=== PATIENT | female | born 1960 | race Caucasian/White ===

== ENCOUNTER 2023-05-04 11:01 | Outpatient (CLI) | payer OTHER, SELFPAY ==
--- NOTE | 2023-05-04 | ECG_ITS ---
Measurements Intervals Scurry Rate: 72 P: 46 PA: 181 QRS: 7 QRSD: 88 T: 9 QT: 373 QTc: 408 Interpretive Statements SINUS RHYTHM WITH OCCASIONAL SUPRAVENTRICULAR PREMATURE COMPLEXES NO PREVIOUS ECG AVAILABLE FOR COMPARISON Electronically Signed On 05-04-2023 19:57:17 CDT by Ashly Pradhan M.D.
[2023-05-04 11:49] LABS: Hematocrit 41.9 % (37.0-47.0); Hemoglobin 13.6 g/dL (12.0-15.0); Mean Corpuscular HGB Conc 32.5 g/dl (32-36); Mean Corpuscular Hemoglobin 31.6 pg (26-34); Mean Corpuscular Volume 97.4 fl (80-100); Mean Platelet Volume 9.6 fl (7.4-10.4); Platelet Count Result 349 k/mm3 (150-375); Red Cell Distribution Width 14.4 % (11.5-14.5); White Blood Count 5.8 K/mm3 (4.5-10.0)
[2023-05-04 12:01] LABS: Albumin Level 4.5 g/dL (3.5-5.1); Anion Gap 6 mmol/L (8-16); Blood Urea Nitrogen 25 mg/dL (7-17); Calcium 9.4 mg/dL (8.4-10.2); Carbon Dioxide 32 mmol/L (22-30); Chloride 99 mmol/L (98-107); Estimated Glomerular Filt Rate > 60; Glucose 98 mg/dL (65-110); Potassium 3.4 mmol/L (3.4-5.0); Sodium 137 mmol/L (137-145)
[2023-05-04 12:08] LABS: Prealbumin 21.3 mg/dL (17.6-36.0)
[2023-05-04 13:00] LABS: Iron 136 ug/dL (37-170)
[2023-05-09 12:51] LABS: Vitamin B1 24 nmol/L (8-30)
== END 2023-05-04 11:02 | disposition home or self-care (01) ==
LOC: ANHLAB 11:11
PROVIDERS: PCP Family Medicine; Visit Provider Surgery Plastic and Reconstructive Surgery
DX: R93.1 Abnormal findings on diagnostic imaging of heart and coronary circulation (principal); I10 Essential (primary) hypertension
CPT/HCPCS: 36415; 80048; 82040; 83540; 84134; 84425; 85027; 93005

== ENCOUNTER 2023-05-06 16:12 | Outpatient (CLI) | payer BC, SELFPAY ==
--- NOTE | ~2023-05-06 | MM_ITS ---
EXAMINATION: MM screening russel BI w rekha HISTORY: Screening mammogram TECHNIQUE: Craniocaudal and mediolateral oblique 3-D tomosynthesis images were obtained and synthetic 2-D images were generated. CAD analysis was submitted and interpreted. COMPARISON: 02/06/2011 bilateral screening mammogram BREAST PARENCHYMAL COMPOSITION: There are scattered areas of fibroglandular density. FINDINGS: There is no evidence of suspicious mass, calcification, or architectural distortion to sugg est malignancy in either breast. There has been no suspicious interval change. IMPRESSION: 1. No mammographic evidence of malignancy. 2. Recommend routine screening mammography in one year. BI-RADS Category 1: Negative Reviewed, dictated and finalized at location A.
== END 2023-05-06 16:13 | disposition home or self-care (01) ==
PROVIDERS: PCP Family Medicine; Visit Provider Obstetrics & Gynecology
DX: Z12.31 Encounter for screening mammogram for malignant neoplasm of breast (principal)
CPT/HCPCS: 77063; 77067

== ENCOUNTER 2023-05-28 00:33 | Day surgery (SDC) | payer OTHER, SELFPAY ==
[2023-05-24 14:20] VITALS: BMI 31.6
--- NOTE | 2023-05-24 14:26 | PC.NURSE ---
Addendum entered by Philomena Cristina RN 05/24/23 15:27: PT HAS ALREADY STOPPED TAKING ASPIRIN. Original Note: Report to the Outpatient Waiting Room, entrance under the green pavilion located off [facility], at time 0830 on date 05/28/23. Planned Procedure Time: 1030. Time changes happen often and if your time is changed the preop area will call you the afternoon before. - You and your visitor will be asked to self-screen and do not enter if you have any COVID symptoms. - A mask is optional within the hospital at this time. Patients may have clear liquids (water, carbonated beverages, clear teas, apple juice) until 3 hours prior to surgery with a maximum of 20 ounces. - No food from midnight until time of surgery Take the following medications with a SIP of water the morning of surgery: NONE DO NOT STOP ANY OF YOUR OTHER PRESCRIPTION MEDICATIONS PRIOR TO SURGERY ?EXCEPT THE FOLLOWING Medications to discontinue per physician: VITAMINS/SUPPLEMENTS Date to take last dose: 05/24/23 Please no make-up, nail barbadian, hairspray, perfume, deodorant, or body powder the day of surgery. No jewelry (including any body piercings) or valuables the day of surgery, leave them at home. Please take a shower or bath the night before, or the morning of, surgery with an antibacterial soap. Wear comfortable, loose fitting clothing. - Jewelry must be removed prior to entering the operating room. Rings and piercings that are not removed may be cut off. - The hospital will not accept responsibility for valuables. - Please leave all valuables, including medications, at home the day of surgery. If you are going home after surgery, a licensed ice cream truck driver must drive you home. - NO public transportation without another adult if you receive anesthesia. - We recommend that an adult stay with you for 24 hours following discharge. - We also recommend that you do not drive, make important decision, drink alcoholic beverages, or take any drugs that were not prescribed by your health care provider for at least 24 hours after your discharge time. Follow any additional instructions given to you from your surgeon. If you or anyone in your household have experienced Covid symptoms in the past week, please notify your surgeon or the nurse liaison at the phone number below for possible testing. Telephone instructions given to PT - VARUN FUCHS and asked if any additional questions and then verbalized understanding. Patient advised to call surgeon office or pre surgery nurse liaison [phone] if any additional questions.
[2023-05-28] VITALS (9 sets, daily range): BP systolic 124–159; BP diastolic 66–92; PULSE 80–100; RESP 10–16; TEMP 36.3–36.5; O2SAT 99–100
[2023-05-28 09:53] LABS: Urine Cotinine NEGATIVE
[2023-05-28] MEDS: LACTATED RINGERS 1,000 ML 30 ML IV CONT ×2 (09:53→13:08)
--- NOTE | 2023-05-28 09:56 | P.OP_ITS ---
Procedure Note - Detailed Date of Procedure 05/28/23 Pre-op Diagnosis macromastia Post-op Diagnosis Same Procedure Performed Bilateral reduction mammaplasty with Galaflex Surgeon Milton Perrin MD Anesthesia General Findings Bilateral free nipple graft Tissue removed: Right: 1259 grams Left: 1080 grams Galaflex Ref# [id number] Description of Procedure She is here today for bilateral breast reduction. Previously and again today the risks, benefits, alternatives were discussed in extensive detail. I wanted her to be very realistic about the risks involved as well as expectations. After discussion she would like to proceed with free NAC graft. We discussed aftercare and what to monitor for. She understands we can never guarantee final breast size and there will always be asymmetry. I was very upfront and honest about the risks of sensation change and even nipple loss (). Made sure answered all of her questions to her satisfaction today and consent was obtained. She was marked in the preoperative holding area with their verification. The patient was taken to the operating room placed supine on the operating table. Anesthesia was provided by anesthesiology. She was prepped and draped in a standard sterile fashion. A surgical time-out was taken. Stab incisions were made and I tumessed with a tumescent solution. I marked out the nipple-areolar complex at 42 mm. This was excised and kept in sterile gauze soaked with saline. I then removed the inferior portion of the breast as well as the central keel to get shape based on preoperative planning. At this point copiously irrigated with saline solution and verified a strict hemostasis. I reapproximated the pillars using a 2-0 PDS. Elevated medial and lateral flaps enough to support Galaflex. Galaflex has been soaking in a betadine solution. It was trimmed and sutured into placed with 2-0 Vicryl I tailor tacked the breast into place with geovanni. She was placed in a sitting position. I verified the nipple-areolar complex position based on preoperative markings, intraoperative measurements, and observation which were in full agreement. This nipple-areolar complex was marked at 42 mm in size. I then placed supine and de-epithelialized inset l ocation. After defatting Nipple-areolar complex it was inset with 5-0 chromic. I closed IMF deep with 1 strattafix. I closed the vertical incision with 3-0 Monocryl in the IMF with 3-0 stratafix. Then everything was closed using a running subcuticular 4-0 Monocryl and tissue glue. NAC tie over bolster created with xeroform, cotton, 3-0 Nylon. A dressing was placed followed by surgical bra. Patient was awoke and taken to PACU without difficulty. All instrument sponge counts were correct at the end of the case. Estimated Blood Loss 125 Drains No Packing No Pathology None sent Complications No immediate complications Condition Stable Disposition PACU
--- NOTE | 2023-05-28 09:56 | WPDHPUPDATE1 ---
History and Physical Update Update Date/Time: 05/28/23 09:56 History and Physical has been reviewed, including an updated exam of the patient. There are NO changes in the patient's condition. Risks, benefits, and alternatives have been discussed and questions answered. Patient agrees to proceed with procedure.
--- NOTE | 2023-05-28 10:05 | WPDANESEPPF ---
Anes - Initial Pre Proc Eval Procedure: Operation Date: 05/28/23 10:30 Proposed Procedures p Bilateral Breast Reduction with GalaFlex - Milton Perrin MD Date/Time: 05/28/23 10:05 Surgeon: Milton Perrin MD Pre Op Diagnosis: macromastia Pre Op Diagnosis: macromastia Patient Data Age: 62 Gender: F Height: 1.7 m Weight: 92.9 kg Last Vital Signs Temp 36.5 C 05/28/23 09:45 Pulse 80 05/28/23 09:45 Resp 14 05/28/23 09:45 BP 159/90 H 05/28/23 09:45 Pulse Ox 100 05/28/23 09:45 O2 Del Method Room Air 05/28/23 09:45 Allergies Allergy/AdvReac Type Severity Reaction Status Date / Time codeine Allergy Mild Rash Verified 05/28/23 09:54 morphine Allergy Mild Hallucinati Verified 05/28/23 09:54 ng propoxyphene Allergy Mild SO Verified 05/28/23 09:54 LIGHTHEADED I ALMOST FALL DOWN BEE STINGS Allergy Mild Swelling Uncoded 05/28/23 09:54 Home Medications Medication Instructions Recorded Confirmed Type aspirin 81 mg chewable tablet 81 mg PO DAILY 05/24/23 05/24/23 History calcium carbonate 600 mg calcium 600 mg PO DAILY 05/24/23 05/24/23 History (1,500 mg) tablet (Calcium) cetirizine 10 mg tablet 10 mg PO DAILY 05/24/23 05/24/23 History cholecalciferol (vitamin D3) 125 125 mcg PO DAILY 05/24/23 05/28/23 History mcg (5,000 unit) tablet (Vitamin D3) folic acid-vit B6-vit B12 2.5 1 tablet PO DAILY 05/24/23 05/28/23 History mg-25 mg-1 mg tablet (Folbee) inulin-sorbitol 2 gram chewable 1 tablet PO DAILY 05/24/23 05/24/23 History tablet wcwrntgm-phpfnrmu-rzu C 250 1 tablet PO DAILY 05/24/23 05/28/23 History mg-herbal no.124 8.875 mg chewable tablet (Airborne (ascorbic acid)) multivitamin 1 tablet PO DAILY 05/24/23 05/28/23 History triamterene 37.5 1 cap PO DAILY 05/24/23 05/24/23 History mg-hydrochlorothiazide 25 mg capsule Laboratory Tests 05/28/23 08:40 Cotinine Negative Patient hx anesthesia problems: none Family hx anesthesia problems: none Results Review: All pre-operative results and documents have been reviewed as part of the pre-operative evaluation. [facility] Social History Social History Smoking status: Never smoker Alcohol intake: never Substance use: never Substance use type: does not use Living arrangements: with family Spiritual care concerns: No Comments h/o gastric bypass, c section, panniculectomy Anes - Eval Final PreProcedure Day of Procedure 05/28/23 10:05 Patient weight: obese Heart: regular rate and rhythm Lungs: normal air movement Airway: Mallampati scale class II Neurological: alert and oriented ASA classification: III Emergent: no Anesthetic plan: proceed Anesthesia type and monitoring: general LMA Results Review: All pre-operative results and documents have been reviewed as part of the pre-operative evaluation. Informed Consent: The patient's anesthetic plan and its attendant risks and benefits were discussed with the patient/family/POA. Questions were solicited and answers provided to the satisfaction of the patient/family/POA.
[2023-05-28] MEDS: ceFAZolin 2 GM/D5W 50 ML 2 GM/50 ML BAG IVPB (10:10)
[2023-05-28] MEDS: TRANEXAMIC ACID 1,000MG/ISO100 1,000 MG/100 ML BAG 200 MG IVPB (10:21)
[2023-05-28] MEDS: NACL 0.9% IRRIG POUR BOTTLE 900 ML, GENTAMICIN SULFATE INJ 160 MG, CLINDAMYCIN PHOS INJ... IRRIGATION (12:07)
[2023-05-28] MEDS: LACTATED RINGERS IRRIG 1,000 ML, LIDOCAINE HCL 1% LOCAL INJ 50 ML, EPINEPHrine HCL INJ ... INFILTRATE (12:07)
[2023-05-28] MEDS: fentaNYL CITRATE INJ (*CRX) 100 MCG/2 ML VIAL 25 MCG IV PUSH (14:10)
[2023-05-28] MEDS: traMADol HCL (*CRX) 50 MG TABLET 100 MG PO (14:21)
[2023-05-28] MEDS: SCOPOLAMINE 1.5 MG PATCH TRANSDERM (15:48)
[2023-05-28] MEDS: ACETAMINOPHEN 500 MG TABLET 1000 MG PO (15:48)
[2023-05-28] MEDS: ONDANSETRON HCL ODT 4 MG TABLET PO (15:48)
== END 2023-05-28 15:50 | disposition home or self-care (01) ==
PROVIDERS: PCP Family Medicine; Visit Provider Surgery Plastic and Reconstructive Surgery
PROC: 0HBV0ZZ Excision of Bilateral Breast, Open Approach (ICD-10-PCS; CPT 19318; principal; 2023-05-28 10:30)
DX: N62 Hypertrophy of breast (principal); N60.12 Diffuse cystic mastopathy of left breast; N60.11 Diffuse cystic mastopathy of right breast; Z79.82 Long term (current) use of aspirin; E66.9 Obesity, unspecified; Z68.32 Body mass index [BMI] 32.0-32.9, adult
CPT/HCPCS: 19318; 15777 ×2; 80307; 88305; A9270; J0171; J0690; J1100; J1170; J1580; J2250; J2405; J2704; J3010; J7120